=== PATIENT | male | born 1990 | race Asian ===

== ENCOUNTER 2022-11-01 14:07 | Emergency (ER) | payer OTHER ==
[2022-11-01 14:17] VITALS: BP 140/92
[2022-11-01 14:33] LABS: BASOPHILS % (AUTO) 0.6 %; EOSINOPHILS # (AUTO) 0.1 10^3/uL (0.0-0.7); EOSINOPHILS % (AUTO) 2.5 %; HCT - HEMATOCRIT 49.3 % (42.0-52.0); HGB - HEMOGLOBIN 16.8 g/dL (14.0-18.0); LYMPHOCYTES # (AUTO) 1.1 10^3/uL (1.5-3.5); LYMPHOCYTES % (AUTO) 30.1 %; MEAN CORPUSCULAR HEMOGLOBIN 29.8 pg (27.0-31.0); MEAN CORPUSCULAR HGB CONC 34.1 g/dL (32.0-36.0); MEAN CORPUSCULAR VOLUME 87.4 fL (80.0-94.0); MONOCYTES # (AUTO) 0.5 10^3/uL (0.0-1.0); MONOCYTES % (AUTO) 12.7 %; NEUTROPHILS % (AUTO) 53.8 %; PLT - PLATELET COUNT 230 10^3/uL (130-450); RED BLOOD COUNT 5.64 10^6/uL (4.70-6.10); RED CELL DISTRIBUTION WIDTH 12.1 % (12.0-15.0); WHITE BLOOD COUNT 3.6 x10^3/uL (4.8-10.8)
[2022-11-01 14:39] LABS: GLUCOSE, URINE (UA) NEGATIVE (NEGATIVE); KETONES,URINE (UA) 15 mg/dL (NEGATIVE); LEUKOCYTE ESTERASE, URINE NEGATIVE (NEGATIVE); NITRITE,URINE NEGATIVE (NEGATIVE); OCCULT BLOOD,URINE NEGATIVE (NEGATIVE); PROTEIN,URINE 30 mg/dL (NEGATIVE); UROBILINOGEN,URINE 0.2 (NORMAL) E.U./dL (NORMAL)
[2022-11-01 14:48] LABS: BILIRUBIN,URINE NEGATIVE (NEGATIVE); CLARITY,URINE CLEAR (CLEAR); ICTOTEST,URINE NEGATIVE
[2022-11-01 14:53] LABS: ALBUMIN 4.4 g/dL (3.2-5.5); ALBUMIN/GLOBULIN RATIO 1.1 (1.0-2.2); BILIRUBIN,TOTAL 0.6 mg/dL (0.2-1.0); CALCIUM 8.9 mg/dL (8.5-10.3); CREATININE 1.1 mg/dL (0.6-1.2); POTASSIUM 3.4 mmol/L (3.5-5.0); TOTAL PROTEIN 8.4 g/dL (6.7-8.2)
[2022-11-01 14:56] LABS: WBC,URINE 0-3 /HPF (0-3)
[2022-11-01 14:57] LABS: BACTERIA,URINE Rare /HPF (None Seen); CRYSTALS,URINE 6-10 Calcium Oxalate /LPF; RBC,URINE 0-5 /HPF (0-5); SQUAMOUS EPITHELIAL CELL,UR NONE SEEN (<= Few)
--- NOTE | 2022-11-01 16:17 | ED Physician Documentation ---
History of Present Illness - Stated complaint Stated Complaint: MCNULTY/ABD PX/DIARRHEA - Chief complaint Chief Complaint: Abd Pain - Additonal information Additional information: 31-year-old male presents the emergency department for evaluation of abdominal pain and diarrhea. Symptoms began about 72 hours ago. He reports that Friday he was having a lot of abdominal cramping and had 15 or more loose watery bowel movements. Sometimes they were clear or yellow. Nonbloody. He initially had fevers that day though the fever has subsided. Since then the diarrhea has started to improve and is now having less than 5 watery stools a day. He does have some generalized cramping but no focal pain. No history of similar. He recently moved into a new apartment and wonders if the water could be contaminated. Denies similar illness and call legs friends or family. Review of Systems Constitutional: reports: Fever Throat: reports: Reviewed and negative Cardiac: reports: Reviewed and negative Respiratory: reports: Reviewed and negative GI: reports: Abdominal Pain, Diarrhea. denies: Hematemesis, Bloody / black stool : reports: Reviewed and negative Skin: reports: Reviewed and negative Musculoskeletal: reports: Reviewed and negative PD PAST MEDICAL HISTORY - Past Medical History Past Medical History: No - Past Surgical History Past Surgical History: No - Present Medications Home Medications: Ambulatory Orders Medication Instructions Recorded Confirmed No Known Home Medications 11/01/22 11/01/22 - Allergies Allergies/Adverse Reactions: Allergies Allergy/AdvReac Type Severity Reaction Status Date / Time No Known Drug Allergies Allergy Verified 11/01/22 14:17 - Social History Does the pt smoke?: No Smoking Status: Never smoker Does the pt drink ETOH?: Yes Does the pt have substance abuse?: No - POLST Patient has POLST: No PD ED PE NORMAL - General General: Alert and oriented X 3, No acute distress - HEENT HEENT: PERRL - Neck Neck: Supple, no meningeal sign, No adenopathy - Cardiac Cardiac: RRR, No murmur, No gallop - Respiratory Respiratory: No respiratory distress, Clear bilaterally - Abdomen Abdomen: Soft, Non tender (No abdominal tenderness elicited with light, deep palpation or percussion). No: Normal bowel sounds (Mildly hyperactive) - Derm Derm: Normal color, Warm and dry, No rash - Extremities Extremities: No deformity - Neuro Neuro: Alert and oriented X 3, drill sharpener 2-12 intact Eye Opening: Spontaneous Motor: Obeys Commands Verbal: Oriented GCS Score: 15 Results - Vitals Vitals: Vital Signs - 24 hr 11/01/22 14:14 Temperature 35.9 C L Heart Rate 99 Respiratory 16 Rate Blood Pressure 140/92 H O2 Saturation 98 Oxygen O2 Source Room air - Labs Labs: Laboratory Tests 11/01/22 11/01/22 11/01/22 14:28 14:28 14:32 WBC 3.6 L RBC 5.64 Hgb 16.8 Hct 49.3 MCV 87.4 MCH 29.8 MCHC 34.1 RDW 12.1 Plt Count 230 MPV 9.0 Neut # (Auto) 2.0 Lymph # (Auto) 1.1 L [place] # (Auto) 0.5 Eos # (Auto) 0.1 Baso # (Auto) 0.0 Absolute Nucleated RBC 0.00 Nucleated RBC % 0.0 Sodium 138 Potassium 3.4 L Chloride 103 Carbon Dioxide 27 Anion Gap 8.0 BUN 16 Creatinine 1.1 Estimated GFR (MDRD) 77 L Glucose 100 Calcium 8.9 Total Bilirubin 0.6 AST 77 H ALT 110 H Alkaline Phosphatase 46 Total Protein 8.4 H Albumin 4.4 Globulin 4.0 Albumin/Globulin Ratio 1.1 Lipase 43 Urine Color DARK YELLOW Urine Clarity CLEAR Urine pH 6.0 Ur Specific Harvey >=1.030 H Urine Protein 30 H Urine Glucose (UA) NEGATIVE Urine Ketones 15 H Urine Occult Blood NEGATIVE Urine Nitrite NEGATIVE Urine Bilirubin NEGATIVE Urine Urobilinogen 0.2 (NORMAL) Ur Leukocyte Esterase NEGATIVE Urine RBC 0-5 Urine WBC 0-3 Ur Squamous Epith Cells NONE SEEN Urine Crystals 6-10 Calcium Oxalate Urine Bacteria Rare Ur Microscopic Review INDICATED Urine Culture Comments NOT INDICATED PD Medical Decision Making - ED course Complexity details: reviewed results, re-evaluated patient, considered differential, d/w patient ED course: 31-year-old male presents emergency department for evaluation of abdominal cramping and diarrhea that began about 72 hours ago. Initially he was having 10-15 watery stools a day that is reduced in frequency and now is averaging about 5 watery stools a day. All nonbloody. Clinically on exam the patient appears remarkably well without hypotension or tachycardia. His abdominal exam was benign. CBC and electrolytes were obtained. Mild leukocytosis which I believe is likely related to a stress marginalization. His electrolytes do not show worrisome findings such as significant dehydration. He does have some mild LFT abnormalities. An acute hepatitis panel is pending. The patient was unable to provide stool today for C. difficile for culture testing. I discussed with patient that the likely etiology of his diarrhea was a viral enteritis. Given that the symptoms are seemingly improving no further treatment was warranted today. We did discuss the necessity of CT of the abdomen though this was deferred because again his symptoms were improving. He is discharged home in stable condition with usual routine emergent return precautions discussed Departure - Departure Disposition: Home, Self Care Clinical Impression: Abnormal LFTs Diarrhea Qualifiers: Diarrhea type: unspecified type Qualified Code(s): R19.7 - Diarrhea, unspecified Condition: Stable Record reviewed to determine appropriate education?: Yes Instructions: ED Diarrhea Viral Comments: As discussed at the bedside the most common cause of diarrhea is usually a viral illness. Most diarrhea will begin to get better between 3 and 5 days. I recommend that you continue to stay well-hydrated with water, broth or half- strength Gatorade. I do recommend that he continue to eat simple foods such as bananas, rice, applesauce and toast as this will help bulk your stool, reducing diarrhea and improving the cramping. Your labs today show that you have some mildly abnormal liver function test. This can often be seen with viral illnesses. We will notify you if any of your other testing is positive. If you find that your symptoms or not improving, you develop worsening fevers have sudden severe abdominal pain or any bloody diarrhea you should return to the ER for a second evaluation.
[2022-11-02 08:09] LABS: HBsAG SCREEN Negative (Negative); HCV AB Non Reactive (Non Reactive); HEPATITIS B CORE IGM AB Negative (Negative)
== END 2022-11-01 16:26 | disposition home or self-care (01) ==
LOC: ED 14:07
DX: R19.7 Diarrhea, unspecified (principal); R79.89 Other specified abnormal findings of blood chemistry
CPT/HCPCS: 36415; 80053; 80074; 81001; 81003; 83690; 85025; 87086; 99283